=== PATIENT | male | born 1970 | race Caucasian/White ===

== ENCOUNTER 2025-05-23 19:03 | Emergency (ER) | payer BC, SELFPAY ==
[2025-05-23] MEDS ORDERED: NA CHLORIDE 0.9% 1,000 ML ONE (19:53)
[2025-05-23] MEDS ORDERED: ONDANSETRON 4 MG/2 ML VIAL ONE (19:53)
[2025-05-23 19:59] LABS: Absolute Lymphocytes (CBC) 0.8 K/uL (0.7-4.9); Hematocrit 41.5 % (39.6-49.0); Hemoglobin 13.9 g/dL (13.6-17.9); MCH 27.9 pg (27.0-35.0); MCHC 33.5 g/dL (32.0-36.0); MCV 83.3 fL (80-100); MPV 7.3 fL (7.6-11.3); Nucleated RBC Absolute Count 0.0 (0-0); Nucleated Red Blood Cells % 0.0 % (0-0); RBC Red Blood Cell Count 4.98 M/uL (4.33-5.43); White Blood Count 11.10 thou/uL (4.3-10.9)
[2025-05-23 20:16] LABS: ALT/SGPT 18.0 U/L (16-61); AST/SGOT 15.0 U/L (15-37); Albumin 3.4 g/dL (3.4-5.0); Albumin/Globulin Ratio 0.7 (1.1-1.8); Alkaline Phosphatase 153.0 U/L (45-117); Anion Gap 9.5 mEq/L (5.0-15.0); BUN Blood Urea Nitrogen 26.0 mg/dL (7-18); Globulin 4.8 g/dL (2.3-3.5); Glucose Level 108.0 mg/dL (74-106); Lipase 35.0 U/L (13-75); Potassium 4.5 mEq/L (3.5-5.1)
--- NOTE | 2025-05-23 21:13 | RAD REPORT ---
EXAMINATION: Abdomen Pelvis W Contrast CLINICAL INDICATION: Male, 55 years old.ABD PAIN TECHNIQUE: CT abdomen and pelvis was performed, after the administration of IV contrast, as per [facility]. Axial, sagittal and coronal reconstructions were obtained. One or more of the following dose reduction techniques were used: Automated exposure control, adjustment of the mA and/o r kV according to patient size, and/or iterative reconstruction. Unless otherwise specified, incidental findings do not require dedicated imaging follow-up. [id number]. COMPARISON: No prior exams FINDINGS: LOWER CHEST: No acute process identified.No significant pericardial effusion. Moderate circumferentia l thickening of the distal esophagus which could reflect esophagitis. Endoscopy could better evaluate. UPPER GI: No significant abnormality. LIVER: Benign appearing low density liver lesions. No suspicious mass. GALLBLADDER/BILE DUCTS: No biliary ductal dilatation.? PANCREAS: No mass, ductal dilation, or star-pancreatic fluid. SPLEEN: Unremarkable. ADRENALS: No adrenal masses. KIDNEYS AND URETERS: Mild bilateral hydronephrosis.No suspicious renal mass. ABDOMINAL AORTA AND OTHER VESSELS: Normal caliber aorta and IVC. PERITONEUM: No abnormal free fluid. No free air. LYMPH NODES: No pathologic lymphadenopathy. ABDOMINAL WALL: Unremarkable SMALL BOWEL/COLON: Small bowel has normal course and caliber. No colonic wall thickening or pericolon ic inflammatory changes. Mild diverticulosis without diverticulitis. Moderate formed stool burden. URINARY BLADDER: Significantly distended bladder. REPRODUCTIVE ORGANS: No pathologic process. MUSCULOSKELETAL: No acute or suspicious osseous abnormality. ADDITIONAL FINDINGS: None. IMPRESSION: Significantly distended bladder. Mild bilateral hydronephrosis. This could be from acute urinary rete ntion and vesicoureteral reflux.
[2025-05-23 23:08] LABS: Sqamous Epithelial None Seen /HPF (None Seen); Urine Culture Reflex Order NOT NEEDED; Urine Microscopic Reflex YN ORDER UMIC
[2025-05-23 23:17] LABS: METHAMPHETAM POSITIVE (NEGATIVE); THC Cannibis POSITIVE (NEGATIVE)
--- NOTE | 2025-05-23 23:24 | ER ---
Nurse's Notes [facility] Name: Carlos A Castellon Age: 55 yrs Sex: Male : 1970 Arrival Date: 05/23/2025 Time: 19:03 Bed 11 Private MD: Diagnosis: Other retention of urine;Other hydronephrosis Presentation: 05/23 19:26 Chief complaint: Patient states: abdominal pain for 3 days. No reports of n/v/d. cp4 Coronavirus screen: Client denies travel out of the [place] in the last 14 days. At this time, the client does not indicate any symptoms associated with coronavirus-19. Ebola Screen: Patient negative for fever greater than or equal to 101.5 degrees Fahrenheit, and additional compatible Ebola Virus Disease symptoms Patient denies exposure to infectious person. Patient denies travel to an Ebola-affected area in the 21 days before illness onset. No symptoms or risks identified at this time. Initial Sepsis Screen: Does the patient meet any 2 criteria? HR > 90 bpm. No. Patient's initial sepsis screen is negative. Does the patient have a suspected source of infection? No. Patient's initial sepsis screen is negative. Risk Assessment: Do you want to hurt yourself or someone else? Patient reports no desire to harm self or others. Onset of symptoms was May 20, 2025. 19:26 Method Of Arrival: EMS: [facility] 4 19:26 Acuity: KATHRYN 3 cp4 Triage Assessment: 19:27 General: Appears in no apparent distress. uncomfortable, Behavior is calm, cooperative, cp4 appropriate for age. Pain: Complains of pain in abdomen. GI: Reports lower abdominal pain, upper abdominal pain. Historical: - Allergies: 19:27 No Known Allergies; cp4 - Immunization history:: Adult Immunizations up to date. - Infectious Disease History:: Denies. - Social history:: Smoking status: Patient denies any tobacco usage or history of. Screenin:[facility] ED Fall Risk Assessment (Adult) History of falling in the last 3 months, dd2 including since admission No falls in past 3 months (0 pts) Confusion or Disorientation No (0 pts) Intoxicated or Sedated No (0 pts) Impaired Gait No (0 pts) Mobility Assist Device Used No (0 pt) Altered Elimination No (0 pt) Score/Fall Risk Level 0 - 2 = Low Risk Oriented to surroundings, Maintained a safe environment, Educated pt \T\ family on fall prevention, incl call for assistance when getting out of bed, Assessed \T\ reinforced patient's understanding of fall precautions, Hourly rounding (assess needs \T\ fall precautionary measures) done. Abuse screen: Denies threats or abuse. Denies injuries from another. Nutritional screening: No deficits noted. Tuberculosis screening: No symptoms or risk factors identified. Assessment: 19:50 General: Appears in no apparent distress. uncomfortable, Behavior is calm, cooperative, dd2 appropriate for age. Pain: Complains of pain in abdomen Pain currently is 9 out of 10 on a pain scale. at worst was 10 out of 10 on a pain scale. Neuro: No deficits noted. Cardiovascular: No deficits noted. Respiratory: No deficits noted. GI: No deficits noted. No signs and/or symptoms were reported involving the gastrointestinal system. Abdomen is flat, non-distended, Bowel sounds present X 4 quads. Abd is soft X 4 quads Abdomen is tender to palpation in right lower quadrant and left lower quadrant Reports lower abdominal pain, upper abdominal pain, nausea. : No deficits noted. No signs and/or symptoms were reported regarding the genitourinary system. EENT: No deficits noted. No signs and/or symptoms were reported regarding the EENT system. Derm: No deficits noted. No signs and/or symptoms reported regarding the dermatologic system. Musculoskeletal: No deficits noted. No signs and/or symptoms reported regarding the musculoskeletal system. Circulation, motion, and sensation intact. Range of motion: intact in all extremities. 23:53 Reassessment: De Luna changed to leg bag. cp4 Vital Signs: 19:26 BP 141 / 91; Pulse 92; Resp 18; Temp 97.1; Pulse Ox 100% ; Weight 77.11 kg; Height 5 cp4 ft. 11 in. ; Pain 7/10; 21:00 BP 160 / 99; Pulse 87; Resp 17; Pulse Ox 98% ; dd2 23:41 BP 141 / 98; Pulse 94; Resp 18; Pulse Ox 98% ; cp4 19:26 Body Mass Index 23.71 (77.11 kg, 180.34 cm) cp4 19:26 Pain Scale: Adult cp4 Kaia Coma Score: 19:50 Eye Response: spontaneous(4). Motor Response: obeys commands(6). Verbal Response: dd2 oriented(5). Total: 15. ED Course: 19:10 Patient arrived in ED. kb 19:10 Nidia Wallace FNP-C [facility]. kb 19:10 Ronny Donaldson MD is Attending Physician. kb 19:27 Triage completed. cp4 19:27 Arm band placed on right wrist. Patient placed in waiting room. cp4 19:49 CBC with Diff Sent. dd2 19:50 Patient has correct armband on for positive identification. Client placed on continuous dd2 cardiac and pulse oximetry monitoring. NIBP monitoring applied. Door closed. Noise minimized. Pillow given. Verbal reassurance given. 19:50 CMP Sent. dd2 19:50 Lipase Sent. dd2 19:50 Patient maintains SpO2 saturation greater than 95% on room air. dd2 19:52 No provider procedures requiring assistance completed. Initial lab(s) drawn, by me, dd2 sent to lab. Inserted saline lock: 20 gauge in right antecubital area, using aseptic technique. Blood collected. Flushed with 10 mL NS. 20:52 CT Abd/Pelvis - IV Contrast Only In Process Unspecified. EDMS 22:10 De Luna cath inserted, using sterile technique, 16 Fr., by strategies analyst, by ED staff, balloon dd2 inflated, to gravity drainage. 23:41 Provided Education on: de luna catheter. cp4 23:41 intact, bleeding controlled, No redness/swelling at site. Pressure dressing applied. cp4 Administered Medications: 19:56 Drug: NS 0.9% IV 1000 ml IV at 1 bolus Per protocol; to be given as a bolus over 60 jj7 minutes Route: IV; Rate: 1 bolus; Site: right antecubital; 23:43 Follow up: IV Status: Completed infusion cp4 19:57 Drug: Ondansetron IVP 4 mg IVP once; over 2 minutes Route: IVP; Site: right antecubital;jj7 23:43 Follow up: Response: No adverse reaction cp4 Medication: 19:50 VIS not applicable for this client. dd2 Outcome: 23:23 Discharge ordered by . kb 23:41 Discharged to home via wheelchair, cp4 23:41 Condition: stable 23:41 Discharge instructions given to patient, family, Instructed on discharge instructions, follow up and referral plans. Demonstrated understanding of instructions, follow-up care, 23:42 Patient left the ED. cp4 Signatures: Dispatcher [employer] Nidia Macedo, DIA ROSENBAUM-Anibal Blair RN RN jj7 Simona Gan cp4 SANDRA DALE RN RN dd2
--- NOTE | 2025-05-23 23:24 | EDPHYS ---
Physician Documentation [facility] Name: Carlos A Castellon Age: 55 yrs Sex: Male : 1970 Arrival Date: 05/23/2025 Time: 19:03 Bed 11 Private MD: ED Physician Ronny Donaldson HPI: 05/23 19:29 This 55 yrs old Male presents to ER via EMS with complaints of Abdominal Pain, Weakness.kb 19:29 Patient is a 55-year-old male who presents for right sided abdominal pain and weakness kb that started about a week ago. Reports nausea. Denies vomiting, diarrhea, fever. States he has not eaten in 3 days.. Historical: - Allergies: 19:27 No Known Allergies; cp4 - Immunization history:: Adult Immunizations up to date. - Infectious Disease History:: Denies. - Social history:: Smoking status: Patient denies any tobacco usage or history of. ROS: 19:29 Constitutional: As per HPI kb Exam: 19:29 Constitutional: This is a well developed, well nourished patient who is awake, alert, kb and in no acute distress. Head/Face: Normocephalic, atraumatic. ENT: Moist Mucous membranes Cardiovascular: Regular rate Respiratory: Respirations even and unlabored. No increased work of breathing. Talking in full sentences Skin: Warm, dry with normal turgor. Normal color. MS/ Extremity: Pulses equal, no cyanosis. Neurovascular intact. Full, normal range of motion. Neuro: Awake and alert, GCS 15, oriented to person, place, time, and situation. 19:29 Abdomen/GI: Inspection: abdomen appears normal, Bowel sounds: normal, Palpation: soft, in all quadrants, mild abdominal tenderness, in all quadrants, Vital Signs: 19:26 BP 141 / 91; Pulse 92; Resp 18; Temp 97.1; Pulse Ox 100% ; Weight 77.11 kg; Height 5 cp4 ft. 11 in. ; Pain 7/10; 21:00 BP 160 / 99; Pulse 87; Resp 17; Pulse Ox 98% ; dd2 23:41 BP 141 / 98; Pulse 94; Resp 18; Pulse Ox 98% ; cp4 19:26 Body Mass Index 23.71 (77.11 kg, 180.34 cm) cp4 19:26 Pain Scale: Adult cp4 Gladys Coma Score: 19:50 Eye Response: spontaneous(4). Motor Response: obeys commands(6). Verbal Response: dd2 oriented(5). Total: 15. MDM: 19:10 Medical Screening Exam initiated 19:29 Data reviewed: vital signs, nurses notes. Historians other than the Patient: EMS: [facility]. 23:15 Differential diagnosis: bowel obstruction, diverticulitis, gastritis, gastroesophageal kb reflux disease, non-specific abd pain, Ureterolithiasis. Consideration of Admission/Observation Escalation of care including admission/observation considered. admission considered for hydronephrosis, but de luna placed and resolved bladder distention. Will keep de luna in place and discharge home to follow up with urology. . Management of patient was discussed with the following: Dr Boo Counseling: I had a detailed discussion with the patient and/or guardian regarding the historical points, exam findings, and any diagnostic results supporting the discharge/admit diagnosis, lab results, radiology results, the need for outpatient follow up, a urologist, to return to the emergency department if symptoms worsen or persist or if there are any questions or concerns that arise at home. 23:23 ED course: Discussed all labs and imaging with pt. Pt educated on need for follow up kb with urology to find cause of urinary retention. Discussed possible causes including drug use. . 05/23 19:11 Order name: CBC with Diff; Complete Time: 20:23 kb 05/23 19:11 Order name: CMP; Complete Time: 20:16 kb 05/23 19:11 Order name: Lipase; Complete Time: 20:16 kb 05/23 21:52 Order name: UA Rfx Anand Cult if indicated; Complete Time: 23:10 kb 05/23 21:52 Order name: UDS; Complete Time: 23:18 kb 05/23 19:11 Order name: CT Abd/Pelvis - IV Contrast Only; Complete Time: 21:14 kb 05/23 19:11 Order name: IV Saline Lock; Complete Time: 19:49 kb 05/23 19:11 Order name: Labs collected and sent; Complete Time: 19:49 kb 05/23 21:14 Order name: De Luna; Complete Time: 22:10 kb Administered Medications: 19:56 Drug: NS 0.9% IV 1000 ml IV at 1 bolus Per protocol; to be given as a bolus over 60 jj7 minutes Route: IV; Rate: 1 bolus; Site: right antecubital; 23:43 Follow up: IV Status: Completed infusion cp4 19:57 Drug: Ondansetron IVP 4 mg IVP once; over 2 minutes Route: IVP; Site: right antecubital;jj7 23:43 Follow up: Response: No adverse reaction cp4 Disposition: 05/24 05:28 Co-signature as Attending Physician, Ronny Donaldson MD I agree with the assessment sp4 and plan of care. I reviewed the patient's care provided by the Advanced Practice Provider and agree with the diagnosis and treatment plan. Disposition Summary: 05/23/25 23:23 Discharge Ordered Notes: Location: Home kb Condition: Stable kb Diagnosis - Other retention of urine kb - Other hydronephrosis kb Followup: kb - With: Emergency Department - When: As needed - Reason: Worsening of condition Followup: kb - With: Private Physician - When: 2 - 3 days - Reason: Recheck today's complaints, Continuance of care, Re-evaluation by your physician Discharge Instructions: - Discharge Summary Sheet kb - Acute Urinary Retention, Male, [id number] kb - Indwelling Urinary Catheter Care, Adult, [id number] kb Forms: - Medication Reconciliation Form kb - Antibiotic Education kb - Prescription Opioid Use kb - Patient Portal Instructions kb - Leadership Thank You Letter kb Signatures: Dispatcher [employer] Nidia Macedo, LEXAC KINDERGARTEN AIDE-Anibal Blair RN RN [email or web address] Ronny Donaldson MD MD sp4 Simona Gan 4
[2025-05-23 23:58] VITALS: TEMP 97.1
[2025-05-23 23:59] VITALS: O2SAT 98
[2025-05-24 00:13] VITALS: BP 141/98
== END 2025-05-23 23:42 | disposition home or self-care (01) ==
LOC: ER 19:03
DX: N13.39 Other hydronephrosis (principal)
CPT/HCPCS: 36415; 51702; 74177; 80053; 80307; 81001; 83690; 85025; 96361; 96374; 99285; J2405; J7030; Q9967